=== PATIENT | female | born 1960 | race Caucasian/White ===

== ENCOUNTER 2017-10-10 17:39 | Emergency (ER) | payer OTHER ==
[~2017-10-10] VITALS: Ht 172.7 cm; Wt 69.5 kg
[2017-10-10] MEDS ORDERED: LACT10SO28 PO (18:37)
[2017-10-10] MEDS ORDERED: OMEP40CA6 PO (18:38)
[2017-10-10] MEDS ORDERED: MYCO360T PO (18:39)
[2017-10-10] MEDS ORDERED: EVER0.5T PO ×2 (18:41)
[2017-10-10] MEDS ORDERED: TACR0.5C4 PO (18:42)
[2017-10-10] MEDS ORDERED: URSO300C27 PO (18:43)
[2017-10-10] MEDS ORDERED: RIFA550T4 PO (18:44)
[2017-10-10] MEDS ORDERED: BUPR150T13 PO (18:44)
[2017-10-10] MEDS ORDERED: TIOT18CA INH (18:45)
[2017-10-10] MEDS ORDERED: BUDE10.2 INH (18:47)
[2017-10-10] MEDS ORDERED: LEVO5TAB29 PO (18:48)
[2017-10-10] MEDS ORDERED: ASCO500T5 PO (18:48)
[2017-10-10] MEDS ORDERED: FERR324T5 PO (18:49)
[2017-10-10] MEDS ORDERED: ASPI-496 PO (18:50)
[2017-10-10] MEDS ORDERED: MULT-6 PO (18:50)
[2017-10-10] MEDS ORDERED: CALC500T78 PO (18:51)
[2017-10-10] MEDS ORDERED: ONDANSETRON ODT 4 MG ONE (19:08)
[2017-10-10] MEDS ORDERED: MORPHINE SULFATE 4 MG/ML, 1ML ONE ×2 (19:09→20:35)
[2017-10-10] MEDS ORDERED: FAMOTIDINE 20 MG/2 ML ONE ×2 (19:09→20:35)
[2017-10-10] MEDS ORDERED: ONDANSETRON 2MG/ML, 2ML IVPush ONE (19:30)
[2017-10-10] MEDS ORDERED: MORPHINE SULFATE 4 MG/ML, 1ML IVPush PRN (19:30)
[2017-10-10] MEDS ORDERED: FAMOTIDINE 20 MG/2 ML IVP ONE (19:30)
[2017-10-10 19:38] LABS: MICROSCOPIC NOT IND
[2017-10-10 19:41] LABS: CULTURE INDICATED? NO
[2017-10-10 20:43] LABS: INTERNATIONAL NORMALIZED RATIO 1.04 (0.93-1.1); PROTHROMBIN TIME 10.8 Seconds (9.6-11.5)
[2017-10-10 20:46] LABS: ALBUMIN 3.2 g/dL (3.4-5.0); ANION GAP 8 mmol/L (5-15); CHLORIDE 111 mmol/L (98-107)
[2017-10-10 20:49] LABS: ALANINE AMINOTRANSFERASE 114 U/L (12-78); ALKALINE PHOSPHATASE 616 U/L (45-117); BILIRUBIN,TOTAL 1.6 mg/dL (0.2-1.0); CREATININE 0.97 mg/dL (0.55-1.02); TOTAL PROTEIN 6.9 g/dL (6.4-8.2)
[2017-10-10 21:00] LABS: BASOPHILS # (AUTO) 0.03 x10^3/uL (0-0.1); BASOPHILS % (AUTO) 1 % (0-1); EOSINOPHILS # (AUTO) 0.11 x10^3/uL (0-0.4); EOSINOPHILS % (AUTO) 3 % (1-7); LYMPHOCYTES # (AUTO) 0.56 x10^3/uL (1-3.4); LYMPHOCYTES % (AUTO) 15 % (22-44); MD SCAN; MEAN CORPUSCULAR HEMOGLOBIN 29.5 pg (27.0-34.8); MEAN CORPUSCULAR HGB CONC 34.2 g/dL (32.4-35.8); MEAN CORPUSCULAR VOLUME 86.2 fL (80-100); MEAN PLATELET VOLUME 10.1 fL (7.4-10.4); MONOCYTES # (AUTO) 0.24 x10^3/uL (0.2-0.8); MONOCYTES % (AUTO) 7 % (2-9); NEUTROPHILS % (AUTO) 74 % (42-75); PLATELET COUNT 93 x10^3/uL (130-400); RED CELL DISTRIBUTION WIDTH 14.2 % (9.6-15.2)
[2017-10-10] MEDS ORDERED: HEPARIN 25,000 UNITS/500ML PMX 500 ML IV PRN (21:00)
[2017-10-10] MEDS ORDERED: HEPARIN 5,000 UNITS/ML, 1ML IV ONE (21:00)
[2017-10-10] MEDS ORDERED: HEPARIN 5,000 UNITS/ML, 1ML IV PRN (21:00)
[2017-10-10 21:25] VITALS: BP 114/50
== END 2017-10-10 22:13 | disposition home or self-care (01) ==
LOC: ED 21:58
DX: R10.11 Right upper quadrant pain (principal); R11.2 Nausea with vomiting, unspecified; Z90.49 Acquired absence of other specified parts of digestive tract; J45.909 Unspecified asthma, uncomplicated; Z94.4 Liver transplant status
CPT/HCPCS: 36415; 71045; 76700; 80053; 81003; 83690; 85025; 85520; 85610; 85730; 96374; 96375; 99285; J2405